=== PATIENT | female | born 1955 | race Caucasian/White ===

== ENCOUNTER 2016-07-15 11:31 | Emergency (ER) | payer MEDICAID ==
[~2016-07-15] VITALS: Ht 167.6 cm; Wt 70.3 kg
[~2016-07-15 11:31] MED LIST: ALPR1TAB7 PO; DICL30AD3 PO; LEVO75TA PO; OXYC80TA40 PO; THYR30TA2 PO; THYR60TA2 PO; ZOLP12.52 PO
--- NOTE | 2016-07-15 12:07 | NUR ---
dr pelayo at bedside for consult.
--- NOTE | 2016-07-15 12:12 | NUR ---
Pt dc,ed home w/ aci. pt given script for z pack.
[2016-07-15 12:13] VITALS: BP 130/82
== END 2016-07-15 12:14 | disposition home or self-care (01) ==
LOC: ER 11:34
DX: J18.9 Pneumonia, unspecified organism (principal); F17.200 Nicotine dependence, unspecified, uncomplicated; Z88.0 Allergy status to penicillin; Z88.6 Allergy status to analgesic agent; Z88.2 Allergy status to sulfonamides; Z88.8 Allergy status to other drugs, medicaments and biological substances
CPT/HCPCS: 71010; A4663

== ENCOUNTER 2016-08-06 14:39 | Emergency (ER) | payer MEDICAID ==
[~2016-08-06] VITALS: Ht 167.6 cm; Wt 70.8 kg
[~2016-08-06 14:39] MED LIST changes: -DICL30AD3 PO; -THYR30TA2 PO; -THYR60TA2 PO
[2016-08-06] MEDS ORDERED: METH10TA2 PO (14:51)
--- NOTE | 2016-08-06 15:55 | NUR ---
PT IS IN ROOM #2B. DR HANDLEY EVALUATED THE PT.
[2016-08-06 17:24] LABS: BASOPHILS # (AUTO) 0.1 K/uL (0.0-0.2); BASOPHILS % (AUTO) 0.7 % (0.0-2.0); EOSINOPHILS # (AUTO) 0.3 K/uL (0.0-0.7); EOSINOPHILS % (AUTO) 4.5 % (0.0-7.0); HEMATOCRIT 40.3 % (37.0-47.0); HEMOGLOBIN 13.4 g/dL (12.0-16.0); LYMPHOCYTES # (AUTO) 2.7 K/uL (0.8-4.8); LYMPHOCYTES % (AUTO) 36.9 % (20.5-51.5); MEAN CORPUSCULAR HEMOGLOBIN 29.9 uug (27.0-31.0); MEAN CORPUSCULAR HGB CONC 33 g/dL (32.0-37.0); MEAN CORPUSCULAR VOLUME 89.9 fL (81.0-99.0); MONOCYTES # (AUTO) 0.6 K/uL (0.1-1.30); MONOCYTES % (AUTO) 8.3 % (0.0-11.0); NEUTROPHILS # (AUTO) 3.6 K/uL (1.8-8.9); NEUTROPHILS % (AUTO) 49.6 % (38.5-71.5); PLATELET COUNT (AUTO) 270 K/uL (150-450); RED BLOOD CELL COUNT(AUTO) 4.49 MIL/uL (4.20-5.40); RED CELL DISTRIBUTION WIDTH 13.6 % (11.5-14.5); WHITE BLOOD COUNT (AUTO) 7.3 K/uL (4.0-11.2)
[2016-08-06 17:28] LABS: CALCIUM 9.2 mg/dL (8.5-10.1); CREATININE 0.8 mg/dL (0.6-1.3); POTASSIUM 4.1 mmol/L (3.5-5.1)
[2016-08-06 17:43] LABS: ALBUMIN 3.2 g/dL (3.4-5.0); BILIRUBIN,DIRECT 0.1 mg/dL (0.0-0.2); BILIRUBIN,TOTAL 0.3 mg/dL (0.2-1.0); TOTAL PROTEIN, SERUM 7.2 g/dL (6.4-8.2)
--- NOTE | 2016-08-06 18:15 | NUR ---
PT WAS D/C TO HOME. D/C INSTRUCTIONS GIVEN TO THE PT.
[2016-08-06 18:16] VITALS: BP 139/88
== END 2016-08-06 18:17 | disposition home or self-care (01) ==
LOC: ER 16:10
DX: S79.912A Unspecified injury of left hip, initial encounter (principal); J40 Bronchitis, not specified as acute or chronic; F17.200 Nicotine dependence, unspecified, uncomplicated; Z88.0 Allergy status to penicillin; Z88.2 Allergy status to sulfonamides; Z88.6 Allergy status to analgesic agent; Z88.8 Allergy status to other drugs, medicaments and biological substances; W18.30XA Fall on same level, unspecified, initial encounter; Y93.89 Activity, other specified; Y99.8 Other external cause status; Y92.89 Other specified places as the place of occurrence of the external cause
CPT/HCPCS: 36415; 71010; 73502; 80048; 80076; 83880; 84484; 85025; 85730; 93005; 99285; A4663; 70030-TC